=== PATIENT | female | born 1990 | race Caucasian/White ===

== ENCOUNTER 2022-01-08 17:40 | Emergency (ER) | payer OTHER, SELFPAY ==
--- NOTE | 2022-01-08 17:51 | ED.URI ---
HPI - URI/Sore Throat General Chief Complaint: Upper Respiratory Infection Stated Complaint: abdullahi/sore throat Time Seen by Provider: 01/08/22 17:55 Source: patient, family and RN notes reviewed Mode of arrival: ambulatory Limitations: no limitations History of Present Illness HPI Narrative: 31-year-old female presents to the [facility] with complaints of a sore throat, postnasal drip and nasal congestion. Has taken [id number] products with minimal to no relief. Wants to make sure before Easter that she is not contagious. Patient reports being flu and COVID vaccinated. Denies fevers, nausea, vomiting. Denies chest pain. No abdominal pain. URI patient reports that approximately 5 days ago had nausea vomiting which has completely resolved. MD elicited complaint: sore throat, rhinorrhea and nasal congestion Related Data Home Medications Medication Instructions Recorded Confirmed cetirizine [Zyrtec] 10 mg PO DAILY 01/08/22 01/08/22 [id number] [Pre-F 1 tablet PO DAILY 01/08/22 01/08/22 Vitamin] Allergies Allergy/AdvReac Type Severity Reaction Status Date / Time atropine Allergy Unknown VOMITIED Verified 01/08/22 18:09 BLOOD belladonna alkaloids AdvReac Other Verified 01/08/22 18:10 Review of Systems Review of Systems: All systems reviewed & are unremarkable except as noted in HPI and below Constitutional: Constitutional: Reports no additional constitutional complaints, Denies chills, Denies fever(s) and Denies headache(s) Eyes: Eyes: Reports no additional eye complaints ENT: Reports as per HPI, Denies vertigo, Denies dizziness, Denies headache(s), Denies nasal congestion, Reports post nasal drip, Reports sinus pressure, Reports sore throat and Denies throat swelling Cardiovascular: Cardiovascular: Reports no additional cardiovascular complaints, Denies chest pain, Denies syncope, Denies rapid heart rate and Denies dyspnea Respiratory: Respiratory: Reports no additional respiratory complaints, Denies cough, Denies dyspnea and Denies wheezing Gastrointestinal: Gastrointestinal: Reports no additional gastrointestinal complaints, Denies abdominal pain, Denies diarrhea, Denies nausea and Denies vomiting Musculoskeletal: Musculoskeletal: Reports no additional musculoskeletal complaints and Denies numbness Integumentary/Breasts: Skin/Breast: Reports system reviewed and no additional complaints, except as docu Neurologic: Reports system reviewed and no additional complaints, except as documented, Denies vertigo, Denies dizziness, Denies syncope, Denies headache(s), Denies focal weakness and Denies numbness Psychiatric: Psychiatric: Reports no additional psychiatric complaints Allergic/Immunologic: Allergic/Immunologic: Reports no additional allergic/immunologic complaints and Denies wheezing PMFSH Comments At the time of my signature, I reviewed and agree with the nursing past medical, surgical, social, and family history. There is no relevant family history pertinent to the patient complaint. Exam Const: General: cooperative, healthy appearing, no acute distress, well developed and alert Nutritional Appearance: well nourished Orientation/consciousness: patient oriented x3 Limitations: no limitations HENMT: Head: normal to inspection Ears: external ears normal, TM's normal bilaterally and EAC's normal Face and sinus: sinuses nontender and face symmetric Mouth: Yes moist mucous membranes Throat: tonsils normal, uvula midline, postnasal drainage and no uvular edema Eyes: Conjunctivae: conjunctivae normal Pupils: Equal, round and reactive pupils present Neck: Neck: normal visual inspection, no lymphadenopathy and no meningeal signs Chest: Chest palpation & inspection: normal inspection of the chest Resp: Effort & Inspection: normal respiratory effort and no use of accessory muscles Auscultation: clear to auscultation bilaterally, no crackles, no rales, no rhonchi and no wheezes
[2022-01-08 17:54] VITALS: BP 128/69; PULSE 81; RESP 16; TEMP 36.2; O2SAT 100
== END 2022-01-08 18:25 | disposition home or self-care (01) ==
PROVIDERS: Emergency Provider Nurse Practitioner
DX: J02.9 Acute pharyngitis, unspecified (principal)
CPT/HCPCS: 87081; 87804; 87880; 99213; G0463

== ENCOUNTER 2023-08-29 11:48 | Emergency (ER) | payer OTHER, SELFPAY ==
[2023-08-29 12:15] VITALS: BP 125/66; PULSE 88; RESP 16; TEMP 36.1; O2SAT 99
--- NOTE | 2023-08-29 13:01 | ED.URI ---
HPI - URI/Sore Throat General Chief Complaint: Upper Respiratory Infection Stated Complaint: cough,sore throat Time Seen by Provider: 08/29/23 13:01 Source: patient Mode of arrival: ambulatory Limitations: no limitations History of Present Illness HPI Narrative: 33-year-old female presents with complaint fatigue, body aches, sore throat and headache starting last night. Recent strep throat exposure from family member. Denies nausea vomiting. Afebrile. Patient is 21 weeks . No complaints today. All systems reviewed and negative except as noted above. Related Data Home Medications Medication Instructions Recorded Confirmed cetirizine 10 mg tablet (Zyrtec) 10 mg PO DAILY 01/08/22 08/29/23 [id number] 1 mg 1 tablet PO DAILY 01/08/22 08/29/23 tablet aspirin 81 mg tablet 81 mg PO DAILY 08/29/23 08/29/23 Allergies Allergy/AdvReac Type Severity Reaction Status Date / Time atropine Allergy Unknown VOMITIED Verified 08/29/23 13:03 BLOOD belladonna alkaloids AdvReac Other Verified 08/29/23 13:03 Review of Systems Review of Systems: CONSTITUTIONAL: Denies fever, chills, or sweats. reports fatigue. EYES: Denies visual changes, redness, or discharge. ENT: Denies rhinorrhea, congestion . Reports sore throat. Deniesotalgia. CARDIOVASCULAR: Denies chest pain, palpitations, or edema. RESPIRATORY: Denies cough or dyspnea. GASTROINTESTINAL: Denies abdominal pain, nausea, vomiting, or diarrhea. GENITOURINARY: Denies dysuria or hematuria. SKIN: Denies rash or itching. MUSCULOSKELETAL: Denies back pain, joint pain . Reports myalgia. NEUROLOGIC: Denies headache, numbness, or weakness. PSYCHIATRIC: Denies anxiety or depression. All other systems reviewed are negative, except as documented in HPI. PMFSH Comments At time of signature, agree with nursing past medical, surgical, social and family history. There is no relevant family history pertinent to the presenting complaint. Exam Narrative: GENERAL: This is a well-nourished, well-developed patient, in no apparent distress. HEAD: normocephalic, atraumatic. EYES: PERRL. Sclera clear/white. Vision is grossly intact. EARS: External ears normal, auditory canals clear and without drainage, TMs normal without perforation. Hearing grossly intact. NOSE: External nose normal with no obvious nasal discharge, nares without redness, no rhinorrhea. THROAT: Mucous membranes moist, erythema to posterior pharynx without swelling or exudates. NECK: Neck supple, non-tender without lymphadenopathy, masses or thyromegaly. CARDIOVASCULAR: Regular rate and rhythm without murmurs, gallops, or rubs. RESPIRATORY: Clear to auscultation. Breath sounds equal bilaterally. No wheezes, rales, or rhonchi. SKIN: warm, Dry, intact with no suspicious lesions or rash, good texture and turgor. NEURO: awake, alert, and oriented to person, place and time. There were no obvious focal neurologic abnormalities. EXTREMITIES: No joint tenderness, effusion, or edema noted. Course Course Level of Care: Express Care Visit Vital Signs Vital signs: Vital Signs Temperature 36.1 C L 08/29/23 12:15 Pulse Rate 88 08/29/23 12:15 Respiratory Rate 16 08/29/23 12:15 Blood Pressure 125/66 08/29/23 12:15 Pulse Oximetry 99 08/29/23 12:15 Oxygen Delivery Room Air 08/29/23 12:15 Temperature 36.1 C L 08/29/23 12:15 Pulse Rate 88 08/29/23 12:15 Respiratory Rate 16 08/29/23 12:15 Blood Pressure 125/66 08/29/23 12:15 Pulse Oximetry 99 08/29/23 12:15 Oxygen Delivery Room Air 08/29/23 12:15 Reviewed MDM - URI/Sore Throat MDM Narrative Medical decision making narrative: positive rapid strep. Will treat with amoxicillin. Patient is aware of diagnosis, understands and agrees to treatment plan. Anticipatory guidance given. Patient agrees to follow-up as directed and is aware of reasons to seek care at the emergency department.
== END 2023-08-29 13:32 | disposition home or self-care (01) ==
PROVIDERS: Emergency Provider Nurse Practitioner Family
DX: J02.0 Streptococcal pharyngitis (principal)
CPT/HCPCS: 87880; 99213; G0463